=== PATIENT | male | born 1930 | race Caucasian/White ===

== ENCOUNTER 2018-03-10 09:07 | Observation (INO) | payer MEDICARE ==
[2018-03-09 17:06] LABS: BASOPHILS % 0.6 % (0.0-1.0); EOSINOPHILS # (AUTO) 0.3 (0.0-0.4); EOSINOPHILS % 6.4 % (0.0-6.0); HEMATOCRIT 36.7 % (38.2-49.6); HEMOGLOBIN 12.6 g/dL (14.0-18.0); LYMPHOCYTES # (AUTO) 1.5 (1.0-3.2); LYMPHOCYTES % 28.9 % (18.0-39.1); MEAN CORPUSCULAR HEMOGLOBIN 35.9 pg (28-32); MEAN CORPUSCULAR HGB CONC 34.3 g/dL (31-35); MEAN CORPUSCULAR VOLUME 104.6 fL (81-99); MONOCYTES # (AUTO) 0.4 (0.2-0.8); MONOCYTES % 8.4 % (4.4-11.3); NEUTROPHILS # (AUTO) 2.8 (2.1-6.9); NEUTROPHILS % 55.5 % (38.7-80.0); PLATELET COUNT 124 x10e3/uL (140-360); RED BLOOD COUNT 3.51 x10e6/uL (4.3-5.7)
[2018-03-09 17:15] LABS: INR 1.02; PROTHROMBIN TIME 14.3 seconds (11.9-14.5)
[2018-03-09 17:22] LABS: ALBUMIN 3.8 g/dL (3.5-5.0); ALBUMIN/GLOBULIN RATIO 1.4 (0.8-2.0); ANION GAP 13.3 mmol/L (8-16); CALCIUM 9.5 mg/dL (8.4-10.2); CREATININE, SERUM 1.21 mg/dL (0.72-1.25); POTASSIUM 3.3 mmol/L (3.5-5.1)
[~2018-03-10] VITALS: Ht 170.2 cm; Wt 58.1 kg
[2018-03-10] VITALS (9 sets, daily range): BP systolic 117–140; BP diastolic 67–84
[~2018-03-10 09:07] MED LIST: ATORVASTATIN CA40 MG PO; BYSTOLIC10 MG PO; CIPRO500 MG PO; CRESTOR40 MG PO; DIGOXIN125 MCG PO; ENDUR-ACIN500 MG PO; FLUNISOLIDE25 ML; ISOSORBIDE PO; METOPROLOL SUCC50 MG PO; NORCO 7.5-3251 EACH PO; PANTOPRAZOLE SO40 MG PO; PIOGLITAZONE HC45 MG PO; PROVENTIL HFA6.7 GM PO; TYLENOL WITH C1 EACH PO; ZOFRAN ODT4 MG PO; [UNRECOGNIZED DRUG - OTHER]; [UNRECOGNIZED DRUG - OTHER]
[2018-03-10] MEDS ORDERED: METHYLPREDNISOLONE SOD SUCC 125 MG/2ML VIAL ONE (11:13)
[2018-03-10] MEDS ORDERED: FAMOTIDINE 20 MG/2 ML VIAL IV ONE (11:13)
[2018-03-10] MEDS ORDERED: DIPHENHYDRAMINE HCL 25 MG CAP ONE (11:13)
[2018-03-10] MEDS ORDERED: MIDAZOLAM HCL 2 MG/2 ML VIAL ONE (11:24)
[2018-03-10] MEDS ORDERED: FENTANYL CITRATE/PF 100MCG/2 ML INJ ONE (11:24)
[2018-03-10] MEDS ORDERED: HEPARIN SOD/SOD CHLORIDE 2,000 ML ONE (11:24)
[2018-03-10] MEDS ORDERED: SODIUM CHLORIDE 0.9% 1000ML 1,000 ML ONE ×2 (11:24→12:18)
[2018-03-10] MEDS ORDERED: IOPAMIDOL 370 MG/ML 200 ML INFUS..BTL INJ ONE ×2 (11:24→12:18)
[2018-03-10] MEDS ORDERED: LIDOCAINE HCL 1% LOCAL INJ 20 ML VIAL ONE (11:25)
[2018-03-10] MEDS ORDERED: EPTIFIBATIDE 10 ML ONE (12:15)
[2018-03-10] MEDS ORDERED: TICAGRELOR 90 MG TABLET ONE (12:48)
[2018-03-10] MEDS ORDERED: ASPIRIN 325 MG TAB ONE (12:49)
--- NOTE | 2018-03-10 13:00 | NUR ---
RETURNED TO [facility] CSI, PTCA, AND PTCS TO RCA WITH PATENT 6FR SHEATH TO RFA. AAOX4, VSS. SITE TO R GROIN C/D/I NO S/S OF BLEEDING OR HEMATOMA. DP/PT PULSES 2+ BILATERALLY. IV PATENT WITHOUT S/S OF INFILTRATION NOTED. POST PROCEDURE TEACHING PROVIDED TO PT AND FAMILY. WRITTEN AND VERBAL DISCHARGE INSTRUCTIONS PROVIDED, RETURNED DEMONSTRATION AND REPEAT BACK VERIFIED. SUPINE IN [place]. DENIED PAIN OR NEEDS AT THIS TIME. CALL LIGHT WITHIN REACH. FAMILY AT BEDSIDE.
--- NOTE | 2018-03-10 13:15 | NUR ---
AAOX4, VSS. SITE TO R GROIN C/D/I NO S/S OF BLEEDING OR HEMATOMA. DP/PT PULSES 2+ BILATERALLY. IV PATENT WITHOUT S/S OF INFILTRATION NOTED. POST PROCEDURE TEACHING PROVIDED TO PT AND FAMILY. WRITTEN AND VERBAL DISCHARGE INSTRUCTIONS PROVIDED, RETURNED DEMONSTRATION AND REPEAT BACK VERIFIED. SUPINE IN [place]. DENIED PAIN OR NEEDS AT THIS TIME. CALL LIGHT WITHIN REACH. FAMILY AT BEDSIDE.
--- NOTE | 2018-03-10 13:30 | NUR ---
AAOX4, VSS. SITE TO R GROIN C/D/I NO S/S OF BLEEDING OR HEMATOMA. 6FR SHEATH PATENT. DP/PT PULSES 2+ BILATERALLY. SUPINE IN [place]. DENIED PAIN OR NEEDS AT THIS TIME. CALL LIGHT WITHIN REACH. FAMILY AT BEDSIDE.
--- NOTE | 2018-03-10 14:40 | NUR ---
AAOX4, VSS. 6FR SHEATH PATENT. MYNX CLOSURE DEVICE DEPLOYED BY ASEPTIC TECHNIQUE TO RFA. SITE TO R GROIN REMAINED C/D/I NO S/S OF BLEEDING OR HEMATOMA. DP/PT PULSES 2+ BILATERALLY. SUPINE IN [place]. CARDIAC DIET AND OBS/TELEMETRY UNTIL DISCHARGE ORDERS ENTERED. DENIED PAIN OR NEEDS AT THIS TIME. CALL LIGHT WITHIN REACH. FAMILY AT BEDSIDE.
--- NOTE | 2018-03-10 15:00 | NUR ---
AAOX4, VSS. SITE TO R GROIN C/D/I NO S/S OF BLEEDING OR HEMATOMA. DP/PT PULSES 2+ BILATERALLY. SUPINE POSITION, [place]. DENIED PAIN OR NEEDS AT THIS TIME. CALL LIGHT WITHIN REACH. FAMILY AT BEDSIDE.
--- NOTE | 2018-03-10 15:44 | NUR ---
SLEEPING WITH RESPIRATIONS EVEN AND NONLABORED. EASILY AWAKENED. AAOX4, VSS. SITE TO R GROIN C/D/I NO S/S OF BLEEDING OR HEMATOMA. DP/PT PULSES 2+ BILATERALLY. CALLED TELETRACKING TO ASSIGN TO ROOM NUMBER 102 PER NURSING NUTRITION INTERNSHIP. BED IN [place], SUPINE. CALL LIGHT WITHIN REACH. SPOUSE AT BEDSIDE.
--- NOTE | 2018-03-10 16:14 | NUR ---
AAOX4, VSS. SITE TO R GROIN C/D/I/S NO S/S OF BLEEDING OR HEMATOMA NOTED. DP/PT PULSES 2+ BILATERALLY. TELEMETRY BOX APPLIED. REPORT CALLED TO DEBRA BRADSHAW. OFF UNIT IN STABLE CONDITION TO ROOM 1O2.
[2018-03-10] MEDS ORDERED: MORPHINE SULFATE INJ 4 MG/ML INJ IV PRN (17:15)
[2018-03-10] MEDS ORDERED: HYDRALAZINE HCL 20 MG/ML VIAL IV PRN (17:15)
[2018-03-10] MEDS ORDERED: MORPHINE SULFATE 2 MG/ML SYR IV PRN (17:15)
[2018-03-10] MEDS ORDERED: SODIUM CHLORIDE 0.9% 1000ML 1,000 ML IV SCH (17:15)
--- NOTE | 2018-03-10 18:34 | NUR ---
reviewed dc instructions with pt and family at bedside. verbalized understanding, prior dc instructions given by cathlab per pt. dc stable condition
--- NOTE | 2018-03-11 14:32 | Operative Report ---
DATE OF PROCEDURE: March 10, 2018 INDICATIONS: Coronary artery disease. Abnormal stress test. PROCEDURES PERFORMED 1. Left heart catheterization, selective coronary angiography. 2. Selective cannulation of 1 arterial and 2 venous bypass conduits. 3. Atherectomy and stent placement of the proximal right coronary artery. COMPLICATIONS: None. RECOMMENDATIONS: Dual antiplatelet therapy for life. Access was obtained in the right femoral artery. A 6-Paraguayan sheath was placed. Coronary angiography demonstrated heavily calcified vessels. Left main 50% to 60%, left anterior descending artery 50% and 80% tandem lesions, circumflex 50%. Right coronary artery proximal 99% stenosis with CONCHIS-2 flow. Remaining vessel was heavily calcified with diffuse 50% to 70% stenosis. Left internal mammary artery bypass to left anterior descending artery was widely patent. Saphenous vein bypass to obtuse marginal branch had 50% stenosis. Saphenous vein bypass to right coronary artery was occluded. A decision was made to intervene on the ostial right coronary artery. The right coronary artery was cannulated. Integrilin, heparin, Brilinta and aspirin were used for anticoagulation. The right coronary artery was cannulated using a 6-[place]ayan JR 3.5 guiding catheter. Multiple attempts at passing balloons failed. Orbital atherectomy using a CSI device was performed following which a single 3.0 x 18 mm Resolute Abrahan stent was deployed at 21 atmospheres. Excellent end result, less than 10% residual stenosis. No complications. The right groin was repaired using the Mynx closure device. Patient was discharged home the same day. Job#: [id number]
== END 2018-03-10 18:31 | disposition home or self-care (01) ==
LOC: CATH LAB 09:07 → CATH LAB V 15:19 → MED/SURG 16:30
PROVIDERS: ADMIT Internal Medicine Interventional Cardiology; ATTEND Internal Medicine Interventional Cardiology
DX: I25.110 Atherosclerotic heart disease of native coronary artery with unstable angina pectoris (principal); I11.0 Hypertensive heart disease with heart failure; I50.22 Chronic systolic (congestive) heart failure; Z95.810 Presence of automatic (implantable) cardiac defibrillator; E78.5 Hyperlipidemia, unspecified; R60.0 Localized edema; I25.2 Old myocardial infarction; Z91.041 Radiographic dye allergy status; Z01.812 Encounter for preprocedural laboratory examination; Z79.01 Long term (current) use of anticoagulants; Z79.82 Long term (current) use of aspirin
CPT/HCPCS: 93459; C9602; 36415; 80053; 85025; 85610; 92933; C1724; C1725; C1769; C1874; G0378; J1327; J2001; J2250; J2930; J7030; Q9967

== ENCOUNTER → 2019-02-04 | Outpatient (CLI) | payer MEDICARE ==
[~2019-02-04] MED LIST changes: +REGADENOSON 0.4 MG/5 ML SYR IV ONE
--- NOTE | 2019-02-04 22:11 | Myoview Stress Test ---
DATE OF STUDY: 02/04/2019 07:27:00 Stress Test - Treadmill ONLY INDICATION: Chest pain. PROCEDURE IN DETAIL: Pharmacologic stress testing was performed with regadenoson per protocol. The heart rate was 74 beats per minute at rest and increased to 82 beats per minute during the regadenoson infusion. The resting blood pressure was 118/76 mmHg and decreased to 107/69 mmHg, which is a normal response. The resting electrocardiogram demonstrated ventricular paced rhythm. There were no ST-segment changes suggestive of myocardial ischemia. Myocardial perfusion imaging was performed at rest following the injection of 11 mCi of tetrofosmin. At peak pharmacologic effect, the patient was injected with 31.8 mCi of tetrofosmin. Gated post-stress tomographic imaging was performed. FINDINGS: The overall quality of study is fair. SPECT images demonstrate a large severe perfusion defect in the inferior wall on rest and stress. Gated SPECT imaging reveals inferior akinesis. The left ventricular ejection fraction is calculated to be 26%. IMPRESSION: Myocardial perfusion imaging is abnormal. 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 Overall, left ventricular ejection fraction was reduced with regional wall motion abnormalities as above. Annemarie Washington MD ABS/MODL /[id number]
== END ==
LOC: NM 06:36
PROVIDERS: ATTEND Internal Medicine
DX: R07.9 Chest pain, unspecified (principal)
CPT/HCPCS: 78452; 93017; A9502; J2785

== ENCOUNTER → 2020-08-17 | Outpatient (CLI) | payer MEDICARE | LOC: RAD 08:41 | PROVIDERS: ATTEND Internal Medicine | DX: I25.10 Atherosclerotic heart disease of native coronary artery without angina pectoris (principal); I50.9 Heart failure, unspecified | CPT/HCPCS: 78452; 93017; 93306; A9502; J2785 ==